=== PATIENT | male | born 1995 | race Caucasian/White ===

== ENCOUNTER 2018-05-26 14:43 | Emergency (ER) | payer OTHER ==
[2018-05-26 14:54] VITALS: BP 126/82; PULSE 84; RESP 16; TEMP 97.7; O2SAT 99
--- NOTE | 2018-05-26 15:25 | C.PDOC ---
History Of Present Illness 22 y/o male presents to ED complaining of right shoulder pain (worse with abduction) for the last 3 years. He states he used to play baseball in high school, does not currently play sports. He denies any recent injuries, sensory changes, rashes. Time Seen by Provider: 05/26/18 14:51 Chief Complaint (Nursing): Upper Extremity Problem/Injury History Per: Patient History/Exam Limitations: no limitations Onset/Duration Of Symptoms: Days Current Symptoms Are (Timing): Still Present Quality: "Pain" Exacerbating Factor(s): Movement Past Medical History Reviewed: Historical Data, Nursing Documentation, Vital Signs Vital Signs: Last Vital Signs Temp 97.7 F 05/26/18 14:51 Pulse 84 05/26/18 14:51 Resp 16 05/26/18 14:51 BP 126/82 05/26/18 14:51 Pulse Ox 99 05/26/18 16:46 - Medical History PMH: No Chronic Diseases Surgical History: No Surg Hx Family History: States: No Known Family Hx - Social History Hx Alcohol Use: No Hx Substance Use: No - Immunization History Hx Tetanus Toxoid Vaccination: No Hx Influenza Vaccination: No Hx Pneumococcal Vaccination: No Review Of Systems Constitutional: Negative for: Fever, Chills Cardiovascular: Negative for: Chest Pain Respiratory: Negative for: Cough, Shortness of Breath Musculoskeletal: Positive for: Shoulder Pain (Right) Skin: Negative for: Rash Neurological: Negative for: Weakness, Numbness Physical Exam - Physical Exam Appears: Well, Non-toxic, No Acute Distress Skin: Normal Color, Warm, Dry, No Rash Head: Atraumatic, Normacephalic Eye(s): bilateral: Normal Inspection Oral Mucosa: Moist Cardiovascular: Rhythm Regular Respiratory: Normal Breath Sounds, No Rales, No Rhonchi, No Wheezing Extremity: Tenderness (Mild tenderness to palpation at right lateral shoulder/ humeral head), Capillary Refill (< 2 sec all digits ), No Deformity, No Swelling , Other (worsening pain with abduction) Extremity: Bilateral: Atraumatic, Normal Color And Temperature Pulses: Left Radial: Normal, Right Radial: Normal Neurological/Psych: Oriented x3, Normal Sensation Gait: Steady ED Course And Treatment O2 Sat by Pulse Oximetry: 99 (RA) Pulse Ox Interpretation: Normal - Other Rad XR right shoulder X-Ray: Viewed By Me, Read By Radiologist Interpretation: Administration Intern : Sea Antoine MD. Approver2 : Report Date : 05/26/2018 15:45:17. My Comment : . PROCEDURE: Radiographs of the Right Shoulder. HISTORY: RIGHT SHOULDER PAIN. COMPARISON: No prior. FINDINGS: BONES: Normal. No fracture. JOINTS: Normal. Glenohumeral and acromioclavicular joints preserved. No osteoarthritis. SOFT TISSUES: Normal. OTHER FINDINGS: None. IMPRESSION: Normal radiographs of the right shoulder. Progress Note: Xrays of right shoulder ordered and reviewed. Given patient's history of baseball playing/pitching, and chronic worsening pain with abduction without bony injury, suspect rotator cuff injury (supraspinatus). Explained this to patient, and he understands he needs to follow up with orthopedics within 1 week for further evalaution. Rx for Naprosyn given. Patient understands he should return to ED if symptoms worsen. Reassessment Condition: Improved Disposition Counseled Patient/Family Regarding: Studies Performed, Diagnosis, Need For Followup, Rx Given - Disposition Referrals: [facility] [Outside] Isela Back MD [Staff Provider] - Disposition: HOME/ ROUTINE Disposition Time: 15:25 Condition: STABLE Additional Instructions: FOLLOW UP WITH ORTHOPEDICS WITHIN 1 WEEK USE MEDICATION NEEDED RETURN TO ER IF SYMPTOMS WORSEN Prescriptions: Naproxen 375 mg PO BID PRN #20 tablet PRN Reason: pain Instructions: Rotator Cuff Injury (DC) Forms: [employer] (Greenlandic) Print Language: PASHTO - Clinical Impression Clinical Impression: Injury of right shoulder, Soft tissue injury
--- NOTE | 2018-05-26 15:46 | RAD ---
PROCEDURE: Radiographs of the Right Shoulder HISTORY: RIGHT SHOULDER PAIN COMPARISON: No prior. FINDINGS: BONES: Normal. No fracture. JOINTS: Normal. Glenohumeral and acromioclavicular joints preserved. No osteoarthritis. SOFT TISSUES: Normal. OTHER FINDINGS: None. IMPRESSION: Normal radiographs of the right shoulder.
== END 2018-05-26 15:33 | disposition home or self-care (01) ==
LOC: C.ER 14:43
DX: S49.91XA Unspecified injury of right shoulder and upper arm, initial encounter (principal); X58.XXXA Exposure to other specified factors, initial encounter

== ENCOUNTER 2019-01-12 07:56 | Emergency (ER) | payer OTHER ==
[2019-01-12 08:02] VITALS: RESP 18; BMI 20.9
--- NOTE | 2019-01-12 08:48 | C.PDOC ---
History Of Present Illness 23 y/o male with no PMHx presents to the ED complaining of right-sided throat pain for 3 days. Pain radiates from the right side of throat to right ear. Otherwise he denies any cough, fever, chills, SOB, or difficulty swallowing. Time Seen by Provider: 01/12/19 08:12 Chief Complaint (Nursing): ENT Problem History Per: Patient History/Exam Limitations: None Onset/Duration Of Symptoms: Days (x3) Current Symptoms Are (Timing): Still Present Past Medical History Reviewed: Historical Data, Nursing Documentation, Vital Signs Vital Signs: Last Vital Signs Temp 98.4 F 01/12/19 08:02 Pulse 66 01/12/19 08:02 Resp 18 01/12/19 08:02 BP 121/67 01/12/19 08:02 Pulse Ox 98 01/12/19 08:02 - Medical History PMH: No Chronic Diseases Surgical History: No Surg Hx Family History: States: No Known Family Hx - Social History Hx Tobacco Use: No Hx Alcohol Use: No Hx Substance Use: No - Immunization History Hx Tetanus Toxoid Vaccination: No Hx Influenza Vaccination: No Hx Pneumococcal Vaccination: No Review Of Systems Constitutional: Negative for: Fever, Chills ENT: Positive for: Ear Pain (right), Throat Pain (right side). Negative for: Other (inability to swallow) Respiratory: Negative for: Cough, Shortness of Breath Gastrointestinal: Negative for: Nausea, Vomiting, Diarrhea Neurological: Negative for: Weakness, Dizziness Physical Exam - Physical Exam Appears: Non-toxic, No Acute Distress Skin: Warm, Dry, No Rash Head: Atraumatic, Normacephalic Eye(s): bilateral: Normal Inspection, PERRL, EOMI Oral Mucosa: Moist Throat: Other (Right side peritonsillar abscess) Neck: Supple Cardiovascular: Rhythm Regular, No Murmur Respiratory: No Rales, No Rhonchi, No Wheezing, Other (Lungs clear to auscultation) Extremity: Bilateral: Atraumatic, Normal ROM Pulses: Left Radial: Normal, Right Radial: Normal Neurological/Psych: Oriented x3, Normal Speech, Normal Cranial Nerves ED Course And Treatment O2 Sat by Pulse Oximetry: 98 (RA) Pulse Ox Interpretation: Normal Medical Decision Making Medical Decision Making: Impression: Peritonsillar abscess Plan: * Will page ENT Progress/Updates: 08:[address] Davidson, who will come to evaluate patient. 09:[address] Davidson, abscess was drained in the ED. Patient is medically stable for discharge home, plan is for outpatient antibiotics and follow up in the office. Dr. Davidson requests Bactrim. Disposition Counseled Patient/Family Regarding: Studies Performed, Diagnosis, Need For Followup, Rx Given - Disposition Referrals: Anson Davidson MD [Staff Provider] - Disposition: HOME/ ROUTINE Disposition Time: 09:45 Condition: STABLE Additional Instructions: follow up with Dr. Davidson within 2 days call to make an appointment take medications as prescribed return to ER if symptoms worsens or progress Prescriptions: Naproxen [Naprosyn] 500 mg PO BID PRN #16 tab PRN Reason: Pain, Moderate (4-7) Sulfamethoxazole/Trimethoprim [Bactrim DS 800 mg-160 mg] 1 tab PO BID #14 tab Instructions: Peritonsillar Abscess, Adult (DC) Forms: General Discharge Instructions, [facility] (Kazakh), Work Excuse - Clinical Impression Clinical Impression: Peritonsillar abscess - Scribe Statement The provider has reviewed the documentation as recorded by the Krishan Schafer Provider Attestation: All medical record entries made by the Krishan were at my direction and personally dictated by me. I have reviewed the chart and agree that the record accurately reflects my personal performance of the history, physical exam, medical decision making, and the department course for this patient. I have also personally directed, reviewed, and agree with the discharge instructions and disposition.
[2019-01-12] MEDS ORDERED: Lidocaine 2% w Epi 1:100,000 Inj IJ ONE (09:33)
[2019-01-12] MEDS ORDERED: Tmp-Smz 800 mg-160 mg DS Tab PO STA (09:40)
[2019-01-12] MEDS ORDERED: Dexamethasone 4 mg/1 ml IM STA (09:44)
[2019-01-12] MEDS ORDERED: Tmp-Smz 800 mg-160 mg DS Tab ONE (09:48)
[2019-01-12 10:05] VITALS: BP 126/72; PULSE 70; TEMP 97.8
[2019-01-12 10:45] VITALS: O2SAT 98
--- NOTE | 2019-01-12 11:53 | OP ---
PROCEDURE DATE: 01/12/2019 PREOPERATIVE DIAGNOSIS: Right peritonsillar abscess. POSTOPERATIVE DIAGNOSIS: Right peritonsillar abscess. PROCEDURE: Incision and drainage of right peritonsillar abscess. SIGNIFICANT FINDINGS: Right peritonsillar abscess. DESCRIPTION OF PROCEDURE: The patient was placed in seated position. The right peritonsillar area was injected with lidocaine with epinephrine. A #11 blade was used to make an incision in the right peritonsillar area, clamped, dissection was done. Pus was noted coming out. Loculations were broken with the clamp. Bleeding was controlled with time. The patient tolerated the procedure well. Anson Davidson MD
== END 2019-01-12 10:07 | disposition home or self-care (01) ==
LOC: C.ER 07:56
DX: J36 Peritonsillar abscess (principal)
CPT/HCPCS: 42700; 96372; 99283; J1100